=== PATIENT | female | born 1960 | race Caucasian/White ===

== ENCOUNTER → 2021-01-06 | Day surgery (SDC) | payer OTHER ==
[~2021-01-06] VITALS: Ht 154.9 cm; Wt 85.3 kg
[~2021-01-06] MED LIST: CALCIUM 500 +1 EAC1 PO; CELEXA20 MG PO; COQ-10100 MG PO; DRISDOL50000 UNIT PO; HYGROTON 25MG T25 MG PO; LISINOPRIL40 MG PO; METFORMIN HCL500 MG PO; MOBIC7.5 MG PO; NABUMETONE750 MG PO; NEURONTIN300 MG PO; OMEPRAZOLE40 MG PO; PRAMIPEXOLE0.125 MG PO; PRAVASTATIN SOD80 MG PO; SINGULAIR10 MG PO; STEGLATRO15 MG PO; SYNTHROID112 MCG PO; TIZANIDINE HCL4 M1 PO; VITAMIN B-650 MG PO; VITAMIN B122500 MCG PO; ZYRTEC10 M3 PO
[2021-01-06 08:09] LABS: BASOPHIL 1.3 % (0-2); EOSINOPHIL 1.5 % (0-5); HCT 36.3 % (37.0-47.0); HGB 12.1 g/dl (12.5-16.0); LYMPHOCYTE 32.8 % (15-48); MCH 29.3 pg (25.0-31.0); MCHC 33.3 g/dL (32.0-36.0); MCV 87.9 fL (78.0-100.0); MONOCYTE 7.2 % (0-12); MPV 9.1 fL (6.0-9.5); NEUTROPHIL 56.8 % (41-80); NRBC 0; PLT 402 K/uL (150-400); RBC 4.13 M/uL (4.20-5.40); RDW 12.7 % (11.5-14.0); WBC 7.9 K/uL (4.0-10.5)
[2021-01-06 08:27] LABS: CREATININE 0.81 mg/dL (0.51-0.95); POTASSIUM 3.8 mmol/L (3.5-5.1)
== END | disposition home or self-care (01) ==
LOC: FAS 06:54
PROVIDERS: Anesthesiology; Oral & Maxillofacial Surgery
DX: K02.9 Dental caries, unspecified (principal); K04.7 Periapical abscess without sinus; I10 Essential (primary) hypertension; E11.9 Type 2 diabetes mellitus without complications; G25.81 Restless legs syndrome; E03.9 Hypothyroidism, unspecified; F32.9 Major depressive disorder, single episode, unspecified; E78.5 Hyperlipidemia, unspecified; Z88.1 Allergy status to other antibiotic agents; Z88.8 Allergy status to other drugs, medicaments and biological substances
CPT/HCPCS: 36415; 71045; 80048; 85025; 93005; J2250; J2405; J2704; J2710; J3010; J7120